=== PATIENT | female | born 1975 | race Caucasian/White ===

== ENCOUNTER → 2017-05-30 | Outpatient (CLI) | payer BC ==
[~2017-05-30] MED LIST: ALBUTEROL INH INH; ASCO500T8 PO; DEXT10TA7 PO; DOCU100C8 PO; ERGO500017 PO; FERR325T35 PO; HYDR-3138 PO; IBUP-1222 PO; MIGRAINE MED; NIFE30TA13 PO; OMEP40CA6 PO; OXYC-302 PO; SUMA25TA4 PO; TIZA4TAB PO
== END | disposition home or self-care (01) ==
LOC: CFH 14:38
PROVIDERS: ATTEND Family Medicine
DX: Z12.31 Encounter for screening mammogram for malignant neoplasm of breast (principal)
CPT/HCPCS: 77063; G0202

== ENCOUNTER 2017-07-16 19:59 | Emergency (ER) | payer BC, MEDICAID ==
[~2017-07-16] VITALS: Ht 160 cm; Wt 101.2 kg
[~2017-07-16 19:59] MED LIST changes: +DOCU100C33 PO; -DOCU100C8 PO; +FERR-46 PO; -FERR325T35 PO; -HYDR-3138 PO; +HYDR-3237 PO
[2017-07-16] MEDS ORDERED: SODIUM CHLORIDE FLUSH 10ML SYR IVF ONE (22:30)
[2017-07-16] MEDS ORDERED: MORPHINE SULFATE 4 MG/ML, 1ML IVPush PRN (22:30)
[2017-07-16] MEDS ORDERED: SODIUM CHLORIDE 0.9% 1,000ML IVBOLUS ONE (22:30)
[2017-07-16 22:39] LABS: HEMATOCRIT 35.9 % (34.6-47.8); HEMOGLOBIN 12.4 g/dL (11.7-16.4); WHITE BLOOD COUNT 6.4 x10^3/uL (3.4-10)
[2017-07-16] MEDS ORDERED: MORPHINE SULFATE 4 MG/ML, 1ML ONE (22:46)
[2017-07-16 22:48] LABS: ASPARTATE AMINO TRANSFERASE 25 U/L (15-37); BLOOD UREA NITROGEN 13 mg/dL (7-18)
[2017-07-16] MEDS ORDERED: OMNIPAQUE 350 MG/ML, 100ML BOTTLE ONE (23:00)
[2017-07-17 01:45] VITALS: BP 113/78
== END 2017-07-17 01:48 | disposition home or self-care (01) ==
LOC: ED 23:59
DX: R10.12 Left upper quadrant pain (principal); R05 Cough; E11.9 Type 2 diabetes mellitus without complications; I10 Essential (primary) hypertension; Z98.84 Bariatric surgery status
CPT/HCPCS: 36415; 71010; 74177; 80053; 81001; 84703; 85025; 87086; 96361; 96374; 99285; J7030; Q9967

== ENCOUNTER 2017-12-06 20:18 | Emergency (ER) | payer BC, MEDICAID ==
[~2017-12-06] VITALS: Ht 157.5 cm; Wt 91.3 kg
[2017-12-06 20:22] VITALS: BP 135/87
[2017-12-06] MEDS ORDERED: METHOCARBAMOL 750 MG TABLET PO ONE (20:30)
[2017-12-06] MEDS ORDERED: KETOROLAC 30 MG/1 ML IM ONE (20:30)
== END 2017-12-06 22:03 | disposition home or self-care (01) ==
LOC: ED 21:40
DX: S16.1XXA Strain of muscle, fascia and tendon at neck level, initial encounter (principal); M62.830 Muscle spasm of back; I10 Essential (primary) hypertension; E11.9 Type 2 diabetes mellitus without complications; Z90.49 Acquired absence of other specified parts of digestive tract; V49.49XA Driver injured in collision with other motor vehicles in traffic accident, initial encounter; Y93.89 Activity, other specified; Y92.89 Other specified places as the place of occurrence of the external cause; Y99.8 Other external cause status
CPT/HCPCS: 99283

== ENCOUNTER → 2018-06-05 | Outpatient (CLI) | payer BC, MEDICAID | END | disposition home or self-care (01) | LOC: CFH 12:51 | PROVIDERS: ATTEND Family Medicine | DX: Z12.31 Encounter for screening mammogram for malignant neoplasm of breast (principal) | CPT/HCPCS: 77063; 77067 ==

== ENCOUNTER → 2020-04-21 | Outpatient (CLI) | payer OTHER, MEDICAID ==
[~2020-04-21] MED LIST changes: +OMEP40CA42 PO; -OMEP40CA6 PO; -TIZA4TAB PO; +TIZA4TAB2 PO
== END | disposition home or self-care (01) ==
LOC: CFH 13:41
PROVIDERS: ATTEND Family Medicine
DX: Z12.31 Encounter for screening mammogram for malignant neoplasm of breast (principal)
CPT/HCPCS: 77063; 77067